=== PATIENT | male | born 1975 | race Caucasian/White ===

== ENCOUNTER 2016-07-24 23:13 | Emergency (ER) | payer BC ==
[2016-07-24] MEDS: KETOROLAC 30 MG/ML VIAL IM ONE (23:32)
[2016-07-24] MEDS: ACETAMINOPHEN 500 MG TABLET PO ONE (23:32)
--- NOTE | 2016-07-24 23:33 | Emergency Department Record ---
History of Present Illness - General Chief Complaint: Back Pain/Injury Stated Complaint: BACK PAIN Time Seen by Provider: 07/24/16 23:27 Source: Patient, EMS Mode of Arrival: Stretcher Limitations: No limitations - History of Present Illness Initial Comments: 40 yo male presents with low lumbar pain that started last night at work. The pain started with bending over pushing a piece of equipment. He felt a pop at that time. The pain has persisted. He went to work tonight but the pain continued. No radiation of pain to the leg but for a few seconds he felt tingling in his right leg that has resolved. No weakness. No numbness. No changes in bowel or bladder function. No blood in the urine. No history of prior serious back issues or surgery. MD Complaint: Back pain, Back injury Onset/Timin -: Hour(s) Similar Symptoms Previously: Yes Severity: Moderate Severity scale (1-10): 9 Quality: Other Improves With: Sitting upright Worsens With: Movement Associated Symptoms: Denies other symptoms Treatments Prior to Arrival: NSAIDS - Related Data Previous Rx's Medication Instructions Recorded Cyclobenzaprine HCl [Flexeril] 10 mg PO TID #15 tablet 07/25/16 Naproxen [Naprosyn] 500 mg PO Q12H #15 tab. 07/25/16 Allergies Allergy/AdvReac Type Severity Reaction Status Date / Time No Known Drug Allergies Allergy Verified 09/15/15 02:42 Travel Screening - Travel/Exposure Within Last 30 Days Have you traveled within the last 30 days?: No - Travel/Exposure Within Last Year Have you traveled outside the [place] in the last year?: No - Additonal Travel Details Have you been exposed to anyone with a communicable illness?: No - Travel Symptoms Symptom Screening: None Review of Systems Constitutional: Denies: Chills, Fever, Malaise Eyes: Denies: Eye discharge, Eye pain, Photophobia ENT: Denies: Congestion, Throat pain Respiratory: Denies: Cough Cardiovascular: Denies: Chest pain, Palpitations, Syncope Endocrine: Denies: Fatigue Gastrointestinal: Denies: Abdominal pain, Diarrhea, Nausea, Vomiting Genitourinary: Denies: Dysuria, Frequency, Hematuria, Incontinence, Testicular pain, Urgency Musculoskeletal: Reports: As per HPI, Back pain. Denies: Arthralgia, Neck pain Skin: Denies: Bruising, Change in color, Rash Neurological: Denies: Headache Psychiatric: Denies: Anxiety Hematological/Lymphatic: Denies: Blood Clots, Easy bleeding, Easy bruising, Swollen glands Past Medical History - SOCIAL HISTORY Smoking Status: Current some day smoker Alcohol Use: Occassional Drug Use: None - RESPIRATORY Hx Respiratory Disorders: No - CARDIOVASCULAR Hx Cardio Disorders: No - NEURO Hx Neuro Disorders: No - GI Hx GI Disorders: No - Hx Genitourinary Disorders: No - ENDOCRINE Hx Endocrine Disorders: No - MUSCULOSKELETAL Hx Musculoskeletal Disorders: No - PSYCH Hx Psych Problems: No - HEMATOLOGY/ONCOLOGY Hx Hematology/Oncology Disorders: No Family Medical History Any Significant Family History?: No Physical Exam - General General Appearance: Alert, Oriented x3, Cooperative, No acute distress Limitations: No limitations - Head Head exam: Normal inspection - Eye Eye exam: Normal appearance - ENT ENT exam: Normal exam Ear exam: Normal external inspection Nasal Exam: Normal inspection Mouth exam: Normal external inspection - Neck Neck exam: Normal inspection, Full ROM. negative: Meningismus, Tenderness - Respiratory Respiratory exam: Normal lung sounds bilaterally. negative: Respiratory distress - Cardiovascular Cardiovascular Exam: Regular rate, Normal rhythm, Normal heart sounds - GI/Abdominal GI/Abdominal exam: Soft. negative: Tenderness - Rectal Rectal exam: Deferred - exam: Deferred - Extremities Extremities exam: Normal inspection, Normal capillary refill. negative: Calf tenderness, Joint swelling, Pedal edema - Back Back exam: Reports: Muscle spasm, Paraspinal tenderness (low right lumbar), Tenderness, Vertebral tenderness (low mid lumbar). Denies: Full ROM - Neurological Neurological exam: Alert, Normal gait, Oriented X3, Reflexes normal, Other ( Lumbar pain with straight leg raise, no radiation down the leg, foot flexor and extensor intact with full strength, sensation is intact to the bilateral lower legs and feet.). negative: Altered, Motor sensory deficit - Psychiatric Psychiatric exam: Normal affect, Normal mood. negative: Agitated, Anxious - Skin Skin exam: Dry, Intact, Normal color, Warm Course Vital Signs 07/24/16 23:18 Temperature 97.9 F Pulse Rate [ 76 Pulse Ox Probe] Respiratory 18 Rate Blood Pressure 139/89 [Left Arm] Pulse Ox 96 - Reevaluation(s) Reevaluation #1: The XR was reviewed No acute fracture or subluxation Very mild degenerative changes No neurologic findings of examination No weakness or sensory changes. DC home stable 07/25/16 00:14 Disposition Disposition: Discharge Clinical Impression: Lumbar strain Qualifiers: Encounter type: initial encounter Qualified Code(s): S39.012A - Strain of muscle, fascia and tendon of lower back, initial encounter Disposition: Home, Self-Care Return To Work/School Note Provided: Yes Condition: (1) Good Instructions: Low Back Strain (ED) Additional Instructions: Rest and avoid prolonged standing or lifting Follow up with your doctor for a recheck this week Return if worse, weakness, changes in the bowel or bladder function, numb, tingling or any new concerns Prescriptions: Cyclobenzaprine HCl [Flexeril] 10 mg PO TID #15 tablet Naproxen [Naprosyn] 500 mg PO Q12H #15 tab.dr Forms: Patient Portal Access Time of Disposition: 00:19
[2016-07-25] MEDS: HYDROCODONE/APAP 5/325MG TABLET PO ONE (00:46)
[2016-07-25] MEDS: CYCLOBENZAPRINE 10MG TABLET PO ONE (00:46)
[2016-07-25] MEDS: NAPROXEN 250 MG TABLET PO ONE (00:46)
--- NOTE | 2016-07-26 09:50 | RADIOLOGY REPORT ---
EXAM: LUMBAR SPINE HISTORY: BACK PAIN. TECHNIQUE: Six views of the lumbar spine were obtained. Comparison: None. FINDINGS: Five non-rib bearing lumbar type vertebral bodies. The height and alignment is preserved. The disk spaces are maintained. There are no pars defects. IMPRESSION: UNREMARKABLE LUMBAR SPINE. JOB NUMBER: [id number] MTDD
== END 2016-07-25 00:48 | disposition home or self-care (01) ==
LOC: ER 23:13
DX: S39.012A Strain of muscle, fascia and tendon of lower back, initial encounter (principal); X50.0XXA Overexertion from strenuous movement or load, initial encounter; Y92.63 Factory as the place of occurrence of the external cause; Y99.0 Civilian activity done for income or pay
CPT/HCPCS: 99283; 96372; 99284; 72110; J1885